=== PATIENT | female | born 1995 | race Hispanic/Latino ===

== ENCOUNTER 2017-08-31 21:52 | Emergency (ER) | payer SELFPAY ==
[2017-08-31 22:11] VITALS: BMI 47.2
[2017-08-31 22:45] LABS: BASO # 0.02 K/mm3 (0.0-2.0); BASO % 0.2 % (0.0-3.0); EOS # 0.3 (0.0-0.7); EOS % 1.9 % (1.5-5.0); GRAN # 7.54 (1.4-6.5); GRAN % 57.7 % (50.0-68.0); HEMOGLOBIN 12.5 g/dL (12.0-16.0); LYMPH # 4.7 (1.2-3.4); LYMPH % 36.3 % (22.0-35.0); MEAN CELL VOLUME 82.7 fl (80.0-105.0); MEAN CORPUSCULAR HEMOGLOBIN 26.7 pg (25.0-35.0); MEAN CORPUSCULAR HGB CONC 32.3 g/dl (31.0-37.0); MEAN PLATELET VOLUME 9.8 fl (7.0-11.0); MONO # 0.5 (0.1-0.6); MONO % 3.9 % (1.0-6.0); RBC 4.68 10^6/uL (3.5-6.1); RED CELL DISTRIBUTION WIDTH 14.1 % (11.5-14.5); WHITE BLOOD COUNT 13.1 10^3/ul (4.5-11.0)
--- NOTE | 2017-08-31 22:54 | ED PDOC ---
Arrival/HPI - General Chief Complaint: Abdominal Pain Time Seen by Provider: 08/31/17 22:17 Historian: Patient - History of Present Illness Narrative History of Present Illness (Text): 08/31/17 22:48 A 22 year old female presents to the emergency department complaining of RUQ abdominal pain and pain to right shoulder blade. Patient reports pain developed after eating high fat meal two days ago. Patient notes mother has history of gallstones. Patient denies any other complaints at this time. Time/Duration: Other (2 days) Symptom Onset: Sudden Symptom Course: Unchanged Context: Home Past Medical History - Provider Review Nursing Documentation Reviewed: Yes - Infectious Disease Hx of Infectious Diseases: None - Tetanus Immunization Tetanus Immunization: Unknown - Past Medical History Past Medical History: No Previous - Psychiatric Hx Depression: No Hx Emotional Abuse: No Hx Physical Abuse: No Hx Substance Use: No - Past Surgical History Past Surgical History: No Previous - Anesthesia Hx Anesthesia: No Hx Anesthesia Reactions: No Hx Malignant Hyperthermia: No - Suicidal Assessment Feels Threatened In Home Enviroment: No Family/Social History - Physician Review Nursing Documentation Reviewed: Yes Family/Social History: No Known Family HX Smoking Status: Never Smoked Hx Alcohol Use: Yes Hx Substance Use: No Hx Substance Use Treatment: No Allergies/Home Meds Allergies/Adverse Reactions: Allergies No Known Allergies Allergy (Verified 08/31/17 22:09) Home Medications: Home Meds Medication Instructions Recorded Confirmed No Known Home Med 08/31/17 08/31/17 Review of Systems - Physician Review All systems were reviewed & negative as marked: Yes - Review of Systems Gastrointestinal: Abdominal Pain (RUQ) Musculoskeletal: Other (right shoulder pain) Physical Exam Vital Signs Reviewed: Yes Vital Signs Temp Pulse Resp BP Pulse Ox 09/01/17 04:00 97.9 F 75 16 128/70 100 09/01/17 02:00 98.7 F 79 16 130/86 99 09/01/17 00:00 98.6 F 76 16 126/70 100 08/31/17 22:10 98.7 F 85 18 128/75 97 08/31/17 22:09 98.7 F 84 18 128/75 99 Temperature: Afebrile Blood Pressure: Normal Pulse: Regular Respiratory Rate: Normal Appearance: Positive for: Comfortable, Other (morbidly obese) Pain Distress: None Mental Status: Positive for: Alert and Oriented X 3 - Systems Exam Head: Present: Atraumatic, Normocephalic Pupils: Present: PERRL Extroacular Muscles: Present: EOMI Conjunctiva: Present: Normal Mouth: Present: Moist Mucous Membranes Neck: Present: Normal Range of Motion Respiratory/Chest: Present: Clear to Auscultation, Good Air Exchange. No: Respiratory Distress, Accessory Muscle Use Cardiovascular: Present: Regular Rate and Rhythm, Normal S1, S2. No: Murmurs Abdomen: Present: Tenderness (RUQ), Normal Bowel Sounds. No: Distention, Peritoneal Signs Back: Present: Normal Inspection Upper Extremity: Present: Normal Inspection. No: Cyanosis, Edema Lower Extremity: Present: Normal Inspection. No: Edema Neurological: Present: GCS=15, CN II-XII Intact, Speech Normal Skin: Present: Warm, Dry, Normal Color. No: Rashes Psychiatric: Present: Alert, Oriented x 3, Normal Insight, Normal Concentration Medical Decision Making ED Course and Treatment: 08/31/17 22:47 Impression: A 22 year old female with RUQ abdominal pain and right shoulder pain. Plan: -- US abdomen -- labs -- Urinalysis -- Reassess and disposition Prior Visits: Notes and results from previous visits were reviewed. Patient was last seen in the emergency department on 01/20/16 for evaluation of left foot pain. Progress Notes: US Abdomen Complete FINDINGS: Liver: Enlarged, 19.5 cm. Fatty infiltration. No mass. No intrahepatic ductal dilatation. Gallbladder: No gallstones. No wall thickening. No pericholecystic fluid. No sonographic Prince's sign. Common bile duct: No dilatation. No stones. Pancreas: Unremarkable as visualized. Kidneys: Normal echogenicity. No hydronephrosis. Spleen: No splenomegaly. Aorta: Obscured by overlying bowel gas. Inferior vena cava: Obscured by overlying bowel gas. Free fluid: No significant free fluid. IMPRESSION: 1. No acute findings. 2. Non-acute findings are described above. Dictated and Authenticated by: Kalia Dya MD 09/01/2017 2:08 AM Eastern Time ([place] & [place]) CT Abdomen and Pelvis With Intravenous Contrast FINDINGS: Lower thorax: No acute findings. ABDOMEN: Liver: Fatty infiltration. Gallbladder and bile ducts: No calcified stones. No ductal dilation. Pancreas: No ductal dilation. No mass. Spleen: Mild splenomegaly, AP dimension. Adrenals: No mass. Kidneys and ureters: No mass. No hydronephrosis. Stomach and bowel: No definite mural thickening. No obstruction. Appendix: Normal caliber. No inflammation. PELVIS: Bladder: Unremarkable. Reproductive: Unremarkable as visualized. ABDOMEN and PELVIS: Intraperitoneal space: No significant fluid collection. No free air. Bones/joints: No acute fracture. Soft tissues: Unremarkable. Vasculature: Unremarkable. No aneurysm. Lymph nodes: Few subcentimeter short axis mesenteric lymph nodes, nonspecific. IMPRESSION: 1. No definite CT evidence of appendicitis. 2. Incidental/non-acute findings are described above. Dictated and Authenticated by: Kalia Day MD 09/01/2017 5:19 AM Eastern Time ([place] & [place]) - Lab Interpretations Lab Results: 08/31/17 22:30 08/31/17 22:30 Lab Results 08/31/17 23:15: Urine Color yellow, Urine Appearance Slight-cloudy, Urine pH 5.5 , Ur Specific [place] >= 1.030, Urine Protein Trace H, Urine Glucose (UA) Negative, Urine Ketones Trace H, Urine Blood Negative, Urine Nitrate Negative, Urine Bilirubin Negative, Urine Urobilinogen 0.2, Ur Leukocyte Esterase Negative , Urine RBC 1 - 3, Urine WBC 0 - 2, Ur Epithelial Cells 6 - 8, Calcium Oxalate Crystal Mod, Amorphous Sediment Moderate, Urine Bacteria Small 08/31/17 22:30: Sodium 140, Potassium 3.7, Chloride 102, Carbon Dioxide 25, Anion Gap 17, BUN 14, Creatinine 0.7, Est GFR ( Amer) > 60, Est GFR (Non- Af Amer) > 60, Random Glucose 155 H, Calcium 10.2, Total Bilirubin 0.4, AST 29, ALT 39, Alkaline Phosphatase 51, Total Protein 7.6, Albumin 4.1, Globulin 3.6, Albumin/Globulin Ratio 1.1, Lipase 113 08/31/17 22:30: PT 11.9, INR 1.00 08/31/17 22:30: WBC 13.1 H, RBC 4.68, Hgb 12.5, Hct 38.7, MCV 82.7, MCH 26.7, MCHC 32.3, RDW 14.1, Plt Count 334, MPV 9.8, Gran % 57.7, Lymph % (Auto) 36.3 H , [place] % (Auto) 3.9, Eos % (Auto) 1.9, Baso % (Auto) 0.2, Gran # 7.54 H, Lymph # (Auto) 4.7 H, [place] # (Auto) 0.5, Eos # (Auto) 0.3, Baso # (Auto) 0.02 I have reviewed the lab results: Yes - RAD Interpretation Radiology Orders: 08/31/17 22:37 ABDOMEN COMPLETE [US] Stat 09/01/17 02:10 ABD PELVIS PO & IV CONTRAST [CT] Stat - PA / PROCESS DEVELOPMENT ENGINEER / Resident Statement MD/DO has reviewed & agrees with the documentation as recorded. - Scribe Statement The provider has reviewed the documentation as recorded by the Clem Solorio Provider Scribe Attestation: All medical record entries made by the Scribe were at my direction and personally dictated by me. I have reviewed the chart and agree that the record accurately reflects my personal performance of the history, physical exam, medical decision making, and the department course for this patient. I have also personally directed, reviewed, and agree with the discharge instructions and disposition. Disposition/Present on Arrival - Present on Arrival Any Indicators Present on Arrival: No History of DVT/PE: No History of Uncontrolled Diabetes: No Urinary Catheter: No History of Decub. Ulcer: No History Surgical Site Infection Following: None - Disposition Have Diagnosis and Disposition been Completed?: Yes Diagnosis: Mesenteric adenitis Disposition: HOME/ ROUTINE Disposition Time: 05:33 Patient Plan: Discharge Condition: GOOD Discharge Instructions (ExitCare): Mesenteric Adenitis (ED) Additional Instructions: [place]- Rest, Plenty of clear liquids, Tylenol for fever, Motrin for Pain, follow up with your doctor, return to us if worse or new symptoms. Oni- Dr. Morales Varela Referrals: [facility], [Primary Care Provider] - Follow up with primary Forms: [employer] (I[place]ic)
[2017-08-31 22:55] LABS: ALB/GLOB RATIO 1.1 (1.1-1.8); ALBUMIN 4.1 g/dL (3.0-4.8); ALT/SGPT 39 U/L (7-56); AST/SGOT 29 U/L (14-36); BLOOD UREA NITROGEN 14 mg/dL (7-21); CALCIUM 10.2 mg/dL (8.4-10.5); GFR AFRICAN-AMERICAN > 60; GFR NON-AFRICAN AMERICAN > 60; LIPASE 113 U/L (23-300)
[2017-08-31 22:58] LABS: PROTHROMBIN TIME 11.9 SECONDS (9.4-12.5)
[2017-08-31 23:47] LABS: PH,URINE 5.5 (4.7-8.0); URINE BILIRUBIN NEGATIVE (NEGATIVE); URINE BLOOD NEGATIVE (NEGATIVE); URINE GLUCOSE (UA) NEGATIVE (NEGATIVE); URINE LEUKOCYTE ESTERASE NEGATIVE Leu/uL (NEGATIVE); URINE NITRATE NEGATIVE (NEGATIVE); URINE PROTEIN TRACE mg/dL (<30 mg/dL); URINE UROBILINOGEN 0.2 E.U./dL (<1 E.U./dL)
[2017-08-31 23:48] LABS: URINE APPEARANCE SLIGHT-CLOUDY (CLEAR)
[2017-08-31 23:56] LABS: URINE BACTERIA SMALL (NEG); URINE CALCIUM OXALATE CRYSTALS MOD /hpf; URINE WBC 0 - 2 /hpf (0-6)
[2017-08-31 23:57] LABS: URINE AMORPHOUS SEDIMENT MODERATE
--- NOTE | 2017-09-01 02:08 | US ---
EXAM: US Abdomen Complete CLINICAL HISTORY: 22 years old, female; Pain; Abdominal pain; Generalized; Additional info: Biliary colic, fm HX of gallstones TECHNIQUE: Real-time ultrasound of the abdomen (complete) with image documentation. COMPARISON: No relevant prior studies available. FINDINGS: Liver: Enlarged, 19.5 cm. Fatty infiltration. No mass. No intrahepatic ductal dilatation. Gallbladder: No gallstones. No wall thickening. No pericholecystic fluid. No sonographic Prince's sign. Common bile duct: No dilatation. No stones. Pancreas: Unremarkable as visualized. Kidneys: Normal echogenicity. No hydronephrosis. Spleen: No splenomegaly. Aorta: Obscured by overlying bowel gas. Inferior vena cava: Obscured by overlying bowel gas. Free fluid: No significant free fluid. IMPRESSION: 1.No acute findings. 2.Non-acute findings are described above.
[2017-09-01] MEDS ORDERED: Iohexol 240 (50 ml) ONE (02:44)
[2017-09-01] MEDS ORDERED: Iohexol 350 MG/100 ML VIAL ONE (04:48)
[2017-09-01 04:53] VITALS: O2SAT 100
--- NOTE | 2017-09-01 05:19 | CT ---
EXAM: CT Abdomen and Pelvis With Intravenous Contrast CLINICAL HISTORY: 22 years old, female; Pain; Abdominal pain; Flank; Right; Additional info: Leukocytosis and right sided abdominal pain TECHNIQUE: Axial computed tomography images of the abdomen and pelvis with intravenous contrast. All CT scans at this facility use one or more dose reduction techniques, viz.: automated exposure control; ma/kV adjustment per patient size (including targeted exams where dose is matched to indication; i.e. head); or iterative reconstruction technique. Coronal and sagittal reformatted images were created and reviewed. CONTRAST: 96 mL of OMNI 350 administered intravenously. COMPARISON: US - ABDOMEN COMPLETE 2017-09-01 01:43 FINDINGS: Lower thorax: No acute findings. ABDOMEN: Liver: Fatty infiltration. Gallbladder and bile ducts: No calcified stones. No ductal dilation. Pancreas: No ductal dilation. No mass. Spleen: Mild splenomegaly, AP dimension. Adrenals: No mass. Kidneys and ureters: No mass. No hydronephrosis. Stomach and bowel: No definite mural thickening. No obstruction. Appendix: Normal caliber. No inflammation. PELVIS: Bladder: Unremarkable. Reproductive: Unremarkable as visualized. ABDOMEN and PELVIS: Intraperitoneal space: No significant fluid collection. No free air. Bones/joints: No acute fracture. Soft tissues: Unremarkable. Vasculature: Unremarkable. No aneurysm. Lymph nodes: Few subcentimeter short axis mesenteric lymph nodes, nonspecific. IMPRESSION: 1. No definite CT evidence of appendicitis. 2. Incidental/non-acute findings are described above.
[2017-09-01 06:13] VITALS: RESP 19
[2017-09-01 06:44] VITALS: BP 138/70; PULSE 74; TEMP 97.8
== END 2017-09-01 05:34 | disposition home or self-care (01) ==
LOC: ED 21:52
DX: I88.0 Nonspecific mesenteric lymphadenitis (principal)
CPT/HCPCS: 74177; 76700; 80053; 81001; 83690; 85025; 85610; 87086; 99285; Q9966; Q9967

== ENCOUNTER 2018-11-12 16:19 | Emergency (ER) | payer SELFPAY ==
[2018-11-12 16:33] VITALS: BMI 48.0
[2018-11-12] MEDS ORDERED: Sodium Chloride 0.9% 1,000 ML IV STA (16:37)
--- NOTE | 2018-11-12 16:37 | ED PDOC ---
Arrival/HPI - General Time Seen by Provider: 11/12/18 16:21 Historian: Patient - History of Present Illness Narrative History of Present Illness (Text): 11/12/18 21:50 23 y/o female with no significant PMH presents to the ED c/o epigastric and periumbilical abdominal pain x 3 days. Associated diarrhea and nonbloody nonbilious emesis x 3 today. Pt has been experiencing intermittent constipation over the last 3 months. States she has had symptoms like this multiple times over the last few years. No recent travel, antibiotics, changes in diet, sick contacts, or any other associated symptoms. Has never followed up with GI for these complaints. Denies back pain, hematochezia, hematemesis, urinary symptoms, vaginal bleeding, vaginal discharge, headache, dizziness, vision changes, sinus congestion, cough, SOB, chest pain, or any other associated symptoms. Past Medical History - Provider Review Nursing Documentation Reviewed: Yes - Infectious Disease Hx of Infectious Diseases: None - Tetanus Immunization Tetanus Immunization: Unknown - Past Medical History Past Medical History: No Previous - Psychiatric Hx Depression: No Hx Emotional Abuse: No Hx Physical Abuse: No Hx Substance Use: No - Past Surgical History Past Surgical History: No Previous - Anesthesia Hx Anesthesia: No Hx Anesthesia Reactions: No Hx Malignant Hyperthermia: No - Suicidal Assessment Feels Threatened In Home Enviroment: No Family/Social History - Physician Review Nursing Documentation Reviewed: Yes Family/Social History: No Known Family HX Smoking Status: Never Smoked Hx Alcohol Use: Yes Hx Substance Use: No Hx Substance Use Treatment: No Allergies/Home Meds Allergies/Adverse Reactions: Allergies No Known Allergies Allergy (Verified 08/31/17 22:09) Review of Systems - Review of Systems Constitutional: Normal. absent: Fevers Eyes: Normal. absent: Vision Changes ENT: Normal. absent: Sore Throat, Sinus Congestion Respiratory: Normal. absent: SOB, Cough Cardiovascular: Normal. absent: Chest Pain, Palpitations, Syncope Gastrointestinal: Abdominal Pain, Diarrhea, Vomiting. absent: Appetite Changes, Hematochezia, Hematemesis Genitourinary Female: Normal. absent: Dysuria, Frequency, Vaginal Bleeding, Vaginal Discharge Musculoskeletal: Normal. absent: Back Pain, Neck Pain Skin: Normal. absent: Rash Neurological: Normal. absent: Headache, Dizziness Physical Exam Vital Signs Reviewed: Yes Temperature: Afebrile Blood Pressure: Normal Pulse: Regular Respiratory Rate: Normal Appearance: Positive for: Well-Appearing, Non-Toxic, Comfortable Pain Distress: None Mental Status: Positive for: Alert and Oriented X 3 - Systems Exam Head: Present: Atraumatic, Normocephalic Pupils: Present: PERRL Extroacular Muscles: Present: EOMI Conjunctiva: Present: Normal Mouth: Present: Moist Mucous Membranes Neck: Present: Normal Range of Motion. No: Meningeal Signs Respiratory/Chest: Present: Clear to Auscultation, Good Air Exchange. No: Respiratory Distress, Accessory Muscle Use Cardiovascular: Present: Regular Rate and Rhythm, Normal S1, S2, Peripheal Pulses Present Abdomen: Present: Tenderness (generalized, worst periumbilical and epigastric), Normal Bowel Sounds. No: Distention, Peritoneal Signs Back: Present: Normal Inspection. No: CVA Tenderness Upper Extremity: Present: Normal Inspection, Normal ROM, NORMAL PULSES, Neurovascularly Intact, Capillary Refill < 2s. No: Cyanosis, Edema, Temperature Abnormalties Lower Extremity: Present: Normal Inspection, Normal ROM. No: Edema Neurological: Present: GCS=15, CN II-XII Intact, Speech Normal, Motor Func Grossly Intact, Normal Sensory Function, Gait Normal Skin: Present: Warm, Dry, Normal Color. No: Rashes Psychiatric: Present: Alert, Oriented x 3, Normal Insight, Normal Concentration, Normal Affect, Normal Mood Medical Decision Making ED Course and Treatment: Initial Plan: * CBC, CMP * Coags * Lipase * UA * POC preg * CT Abd/Pelvis * IVF * Pepcid * Toradol 11/12/18 18:45 Patient reports improvement in symptoms with medication Bloodwork reviewed, unremarkable Urine shows no UTI CT shows findings of enteritis Advised supportive care and PMD/GI followup. Patient reports resolution of symptoms with medications. Diagnostic testing results and plan of care discussed with patient. Strict instructions given regarding prescription use, importance of followup, and signs/symptoms to return to ER including worsening pain, SOB, chest pain, or any other new/worsening symptoms. Pt verbalized understanding of discussion. Patient is A&Ox3, ambulating with steady gait, with vital signs stable for discharge. - Lab Interpretations Lab Results: 11/12/18 17:21 11/12/18 17:21 Lab Results 11/12/18 17:21: Sodium 143, Potassium 4.6, Chloride 106, Carbon Dioxide 29, Anion Gap 13, BUN 12, Creatinine 0.7, Est GFR ( Amer) > 60, Est GFR (Non- Af Amer) > 60, Random Glucose 93, Calcium 9.4, Magnesium 2.1, Total Bilirubin 0.3, AST 24, ALT 28, Alkaline Phosphatase 50, Total Protein 7.4, Albumin 4.2, Globulin 3.2, Albumin/Globulin Ratio 1.3, Lipase 97 11/12/18 17:21: PT 12.1, INR 1.09, APTT 35.0 11/12/18 17:21: WBC 10.7, RBC 4.71, Hgb 12.5, Hct 38.6, MCV 82.0, MCH 26.5, MCHC 32.4, RDW 13.7, Plt Count 328, MPV 9.9, Neut % (Auto) 60.9, Lymph % (Auto) 31.9, [place] % (Auto) 5.2, Eos % (Auto) 1.8, Baso % (Auto) 0.2, Lymph # (Auto) 3.4, [place] # (Auto) 0.6, Eos # (Auto) 0.2, Baso # (Auto) 0.02, Absolute Neuts (auto) 6.51 H 11/12/18 17:00: Urine Color Yellow, Urine Appearance Clear, Urine pH 6.0, Ur Specific [place] 1.025, Urine Protein Trace H, Urine Glucose (UA) Negative, Urine Ketones Trace H, Urine Blood Negative, Urine Nitrate Negative, Urine Bilirubin Negative, Urine Urobilinogen 0.2, Ur Leukocyte Esterase Trace H, Urine RBC 0 - 2, Urine WBC 0 - 2, Ur Epithelial Cells 0 - 2, Urine Bacteria Trace I have reviewed the lab results: Yes - RAD Interpretation Narrative RAD Interpretations (Text): 11/12/18 18:44 CT Abd/Pelvis: FINDINGS: LOWER THORAX: The visualized lungs are clear. LIVER: Mild hepatomegaly and fatty liver. Normal homogeneous enhancement. No gross lesion or ductal dilatation. GALLBLADDER AND BILE DUCTS: Well distended. No calcified gallstones, wall thickening or pericholecystic fluid. PANCREAS: Normal in size with homogeneous enhancement. No gross lesion or ductal dilatation. SPLEEN: Mild splenomegaly. Normal homogeneous enhancement. ADRENALS: No discrete nodule. KIDNEYS AND URETERS: Normal in size with homogeneous enhancement. No hydronephrosis. No solid mass. VASCULATURE: No aortic aneurysm. There are no aortic atherosclerotic calcifications or mural plaque present. BOWEL: Evaluation of the bowel is limited in the absence of oral contrast. There is fluid in the proximal small bowel loops. The mid and distal small bowel loops are decompressed. There is moderate amount of stool in the ascending colon. The transverse and left hemicolon is decompressed. The small bowel loops are normal in caliber. No bowel wall thickening or obstruction. APPENDIX: Normal appendix. PERITONEUM: No free fluid. No free air. LYMPH NODES: Small subcentimeter shotty mesenteric lymph nodes, likely reactive. BLADDER: Well distended and normal in appearance. REPRODUCTIVE: The uterus is normal in size. BONES: No acute fracture. Within normal limits for the patient's age. OTHER FINDINGS: None. IMPRESSION: Fluid in proximal small bowel loops, nonspecific and could be related to enteritis or diarrhea. No evidence for bowel obstruction. Mild hepatosplenomegaly and fatty liver. 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 Disposition/Present on Arrival - Present on Arrival Any Indicators Present on Arrival: No History of DVT/PE: No History of Uncontrolled Diabetes: No Urinary Catheter: No History Surgical Site Infection Following: None - Disposition Have Diagnosis and Disposition been Completed?: Yes Diagnosis: Enteritis Disposition: HOME/ ROUTINE Disposition Time: 18:47 Patient Plan: Discharge Condition: IMPROVED Discharge Instructions (ExitCare): Viral Gastroenteritis Additional Instructions: Bentyl every 8 hours as needed for cramping Pepcid every 12 hours as needed for indigestion Increase fluids Rest, no strenuous activity Followup with GI within 2 days Followup with primary doctor within 2 days Return to ER with any new/worsening symptoms Prescriptions: Dicyclomine [Bentyl] 10 mg PO Q8 PRN #9 cap PRN Reason: Abdominal Cramping Famotidine [Pepcid] 20 mg PO Q12H PRN #14 tab PRN Reason: Indigestion Referrals: Lizzie Jimenez MD [Medical Doctor] - Follow up with primary Dillon Dill MD [Staff Provider] - Follow up with primary [facility] [place] [Outside] - Follow up with primary [facility] [Outside] - Follow up with primary Forms: WORK NOTE, [facility] (Mal[place]ian)
[2018-11-12 17:10] VITALS: RESP 18; O2SAT 100
[2018-11-12 17:26] LABS: URINE BILIRUBIN NEGATIVE (NEGATIVE); URINE BLOOD NEGATIVE (NEGATIVE); URINE GLUCOSE (UA) NEGATIVE (NEGATIVE); URINE LEUKOCYTE ESTERASE TRACE Leu/uL (NEGATIVE); URINE PROTEIN TRACE mg/dL (<30 mg/dL); URINE UROBILINOGEN 0.2 E.U./dL (<1 E.U./dL)
[2018-11-12 17:29] LABS: URINE APPEARANCE CLEAR (CLEAR); URINE COLOR YELLOW (YELLOW)
[2018-11-12 17:38] LABS: BASO # 0.02 K/mm3 (0.0-2.0); BASO % 0.2 % (0.0-3.0); EOS # 0.2 (0.0-0.7); EOS % 1.8 % (1.5-5.0); HEMOGLOBIN 12.5 g/dL (12.0-16.0); LYMPH # 3.4 (1.2-3.4); LYMPH % 31.9 % (22.0-35.0); MEAN CORPUSCULAR HEMOGLOBIN 26.5 pg (25.0-35.0); MEAN CORPUSCULAR HGB CONC 32.4 g/dl (31.0-37.0); MEAN PLATELET VOLUME 9.9 fl (7.0-11.0); MONO # 0.6 (0.1-0.6); MONO % 5.2 % (1.0-6.0); RBC 4.71 10^6/uL (3.5-6.1); RED CELL DISTRIBUTION WIDTH 13.7 % (11.5-14.5); WHITE BLOOD COUNT 10.7 10^3/uL (4.5-11.0)
[2018-11-12 17:43] LABS: ALB/GLOB RATIO 1.3 (1.1-1.8); ALBUMIN 4.2 g/dL (3.0-4.8); ALT/SGPT 28 U/L (7-56); AST/SGOT 24 U/L (14-36); BLOOD UREA NITROGEN 12 mg/dL (7-21); CALCIUM 9.4 mg/dL (8.4-10.5); GFR NON-AFRICAN AMERICAN > 60; INR 1.09; LIPASE 97 U/L (23-300); PROTHROMBIN TIME 12.1 SECONDS (9.4-12.5)
[2018-11-12] MEDS ORDERED: Iohexol 350 MG/100 ML VIAL ONE (17:54)
[2018-11-12 18:03] LABS: URINE BACTERIA TRACE /hpf; URINE EPITHELIAL CELLS 0 - 2 /hpf (0-5); URINE RBC 0 - 2 /hpf (0-2); URINE WBC 0 - 2 /hpf (0-6)
--- NOTE | 2018-11-12 18:45 | CT ---
Date of service: 11/12/2018 PROCEDURE: CT Abdomen and Pelvis with contrast HISTORY: epigastric pain, r/o obstruction COMPARISON: 09/01/2017. TECHNIQUE: CT scan of the abdomen and pelvis was performed after administration of intravenous contrast. Oral contrast was not administered. Coronal and sagittal reformatted images were obtained. Contrast dose: 100 mL Omnipaque 350 Radiation dose: Total exam DLP = 1305.54 mGy-cm. This CT exam was performed using one or more of the following dose reduction techniques: Automated exposure control, adjustment of the mA and/or kV according to patient size, and/or use of iterative reconstruction technique. FINDINGS: LOWER THORAX: The visualized lungs are clear. LIVER: Mild hepatomegaly and fatty liver. Normal homogeneous enhancement. No gross lesion or ductal dilatation. GALLBLADDER AND BILE DUCTS: Well distended. No calcified gallstones, wall thickening or pericholecystic fluid. PANCREAS: Normal in size with homogeneous enhancement. No gross lesion or ductal dilatation. SPLEEN: Mild splenomegaly. Normal homogeneous enhancement. ADRENALS: No discrete nodule. KIDNEYS AND URETERS: Normal in size with homogeneous enhancement. No hydronephrosis. No solid mass. VASCULATURE: No aortic aneurysm. There are no aortic atherosclerotic calcifications or mural plaque present. BOWEL: Evaluation of the bowel is limited in the absence of oral contrast. There is fluid in the proximal small bowel loops. The mid and distal small bowel loops are decompressed. There is moderate amount of stool in the ascending colon. The transverse and left hemicolon is decompressed. The small bowel loops are normal in caliber. No bowel wall thickening or obstruction. APPENDIX: Normal appendix. PERITONEUM: No free fluid. No free air. LYMPH NODES: Small subcentimeter shotty mesenteric lymph nodes, likely reactive. BLADDER: Well distended and normal in appearance. REPRODUCTIVE: The uterus is normal in size. BONES: No acute fracture. Within normal limits for the patient's age. OTHER FINDINGS: None. IMPRESSION: Fluid in proximal small bowel loops, nonspecific and could be related to enteritis or diarrhea. No evidence for bowel obstruction. Mild hepatosplenomegaly and fatty liver.
[2018-11-12 19:11] VITALS: BP 130/69; PULSE 65
== END 2018-11-12 19:15 | disposition home or self-care (01) ==
LOC: ED 16:19
DX: K52.9 Noninfective gastroenteritis and colitis, unspecified (principal)
CPT/HCPCS: 74177; 80053; 81001; 81025; 83690; 83735; 85025; 85610; 85730; 87086; 96374; 96375; 99284; J1885; J7030; Q9967